=== PATIENT | female | born 1990 | race Caucasian/White ===

== ENCOUNTER 2017-08-11 03:18 | Emergency (ER) | payer OTHER ==
[~2017-08-11] VITALS: Ht 177.8 cm; Wt 74.8 kg
--- NOTE | ~2017-08-11 | EKG ---
[address] [place] [address] ELECTROCARDIOGRAM REPORT Name: RENA LEMUS [id number] Admission: 08/11/17 Attend Phys: Discharge: 08/11/17 Date of : [birth year] Report #: [id number] THIS REPORT FOR: //name// [facility] ED Test Date: 2017-08-11 Test Time: 03:37:21 Pat Name: RENA LEMUS Department: Room: Gender: Security Messenger: ADRIEL : 1990 Requested By: Jeri Pang Order Number: [id number] MD: Dennis Lopez Measurements Intervals [place] Rate: 72 P: 34 HI: 131 QRS: 78 QRSD: 93 T: 38 QT: 393 QTc: 431 Interpretive Statements Sinus rhythm ST elev, probable normal early repol pattern No previous ECG available for comparison Electronically Signed On 08-11-2017 8:31:55 CDT by Dennis Lopez [email or web address] <ELECTRONICALLY SIGNED> By: Dennis Lopez MD, [facility] 08/11/17 0831 [id number] Dennis Lopez MD, FACC /EPI
[2017-08-11] MEDS ORDERED: BIRTH CONTROL (03:30)
[2017-08-11] MEDS ORDERED: MULTIVITAMINS1 EAC7 PO (03:31)
[2017-08-11 04:04] LABS: ABSOLUTE NEUTROPHILS 4.9 thou/uL (1.4-8.2); BASOPHILS 0.4 % (0.0-2.0); CALCIUM 9.3 mg/dL (8.5-10.1); CREATININE 0.9 mg/dL (0.6-1.0); EOSINOPHILS 1.2 % (0.0-3.0); HEMATOCRIT 39.9 % (37.0-47.0); HEMOGLOBIN 13.4 gm/dL (12.0-15.0); LYMPHOCYTES 38.9 % (24.0-44.0); MCH 28.8 pg (26.0-34.0); MCHC 33.7 g/dL (28.0-37.0); MCV 85.6 fL (80.0-100.0); MONOCYTES 7.1 % (1.0-8.0); PLATELET COUNT 211 thou/uL (150-400); POLYS 52.4 % (36.0-66.0); POTASSIUM 3.5 mmol/L (3.5-5.1); RBC 4.67 mil/uL (4.20-5.00); RDW 13.1 % (10.5-14.5); WBC 9.3 thou/uL (4.0-11.0)
[2017-08-11 04:05] LABS: MANUAL DIFF NO
[2017-08-11 04:43] LABS: URINE BILIRUBIN NEGATIVE (Negative); URINE BLOOD NEGATIVE (Negative); URINE COLOR YELLOW; URINE GLUCOSE-RANDOM* NEGATIVE (Negative); URINE KETONES NEGATIVE (Negative); URINE PROTEIN (DIPSTICK) NEGATIVE (Negative); URINE SPECIFIC GRAVITY <= 1.005 (1.003-1.035); URINE UROBILINOGEN 0.2 E.U./dl (0.2-1.0)
[2017-08-11 04:47] LABS: URINE LEUKOCYTES-REFLEX 1+ (Negative)
[2017-08-11 04:51] LABS: CASTS None Seen /LPF (None Seen); SQUAMOUS None Seen /LPF (0-3); URINE WBC-REFLEX 0-5 Rare /HPF (0-5)
[2017-08-11 04:52] LABS: CRYSTALS None Seen /LPF (None Seen); URINE RBC None Seen /HPF (0-2)
[2017-08-11 05:15] VITALS: BP 110/65
== END 2017-08-11 05:12 | disposition home or self-care (01) ==
LOC: ER 03:18
PROVIDERS: Emergency Medicine
DX: R55 Syncope and collapse (principal); E03.9 Hypothyroidism, unspecified